=== PATIENT | female | born 1945 | race Two or more races ===

== ENCOUNTER 2018-06-26 01:56 | Emergency (ER) | payer OTHER ==
[~2018-06-26] VITALS: Ht 162.6 cm; Wt 51.3 kg
[2018-06-26] MEDS ORDERED: HYDROmorphone HCL 2 MG/ML VL IV ONE (02:45)
[2018-06-26] MEDS ORDERED: HYDROmorphone HCL 2 MG/ML VL ONE (02:47)
[2018-06-26] MEDS ORDERED: LORazepam 2MG/ML-1ML VIAL IV ONE (04:00)
[2018-06-26] MEDS ORDERED: ETOMIDATE (2MG/ML) 20ML VIAL IV ONE (04:30)
[2018-06-26 05:19] LABS: Urine Bacteria FEW /hpf (None Seen); Urine Blood Negative /uL (Negative); Urine Hyaline Cast FEW /lpf (0 - 2); Urine Specific Gravity 1.015 (1.001-1.035); Urine WBC 3 /hpf (0 - 5)
[2018-06-26 07:40] VITALS: BP 110/87
== END 2018-06-26 08:23 | disposition home or self-care (01) ==
LOC: EDBD 01:56 → ER 01:56
DX: S43.005A Unspecified dislocation of left shoulder joint, initial encounter (principal); S16.1XXA Strain of muscle, fascia and tendon at neck level, initial encounter; S50.12XA Contusion of left forearm, initial encounter; S09.8XXA Other specified injuries of head, initial encounter; E11.9 Type 2 diabetes mellitus without complications; I10 Essential (primary) hypertension; M19.90 Unspecified osteoarthritis, unspecified site; W01.0XXA Fall on same level from slipping, tripping and stumbling without subsequent striking against object, initial encounter; Y93.89 Activity, other specified; Y92.89 Other specified places as the place of occurrence of the external cause; Y99.8 Other external cause status
CPT/HCPCS: 23650; 70450; 72125; 73020; 73030; 73090; 81001; 94761; 96374; 96375; 99285; J1170; J2060